=== PATIENT | female | born 1985 | race American Indian/Alaskan Native ===

== ENCOUNTER 2019-07-03 16:52 | Emergency (ER) | payer SELFPAY ==
--- NOTE | 2019-07-03 17:52 | Emergency Department Report ---
Blank Doc - Documentation Documentation: 34-year-old female that presents with body aches, cough, and tachycardia. This initial assessment/diagnostic orders/clinical plan/treatment(s) is/are subject to change based on patient's health status, clinical progression and re- assessment by fellow clinical providers in the ED. Further treatment and workup at subsequent clinical providers discretion. Patient/guardians urged not to elope from the ED as their condition may be serious if not clinically assessed and managed. Initial orders include: 1- Patient sent to [facility] for further evaluation and treatment 2- xrays
[2019-07-03 17:57] VITALS: BP 127/93
--- NOTE | 2019-07-03 18:24 | XRay Report ---
CHEST 2 VIEWS INDICATION / CLINICAL INFORMATION: cough. COMPARISON: None available. FINDINGS: SUPPORT DEVICES: None. HEART / MEDIASTINUM: No significant abnormality. LUNGS / PLEURA: No significant pulmonary or pleural abnormality. No pneumothorax. ADDITIONAL FINDINGS: No significant additional findings. IMPRESSION: No acute finding. Signer Name: Jean Steiner MD Signed: 07/03/2019 6:19 PM Workstation Name: [id number]
--- NOTE | 2019-07-03 21:47 | Emergency Department Report ---
Chief Complaint: Upper Respiratory Infection Stated Complaint: SICK Time Seen by Provider: 07/03/19 17:50 - Exam Vital Signs: Vital Signs 07/03/19 17:55 Temperature 98 F Pulse Rate 122 H Respiratory 18 Rate Blood Pressure 127/93 O2 Sat by Pulse 98 Oximetry MSE screening note: Focused history and physical exam performed. Due to findings the following was ordered: ED Disposition for MSE Condition: Stable
[2019-07-03] MEDS ORDERED: SODIUM CHLORIDE 0.9% 1000 ML 1,000 ML ONE (21:52)
--- NOTE | 2019-07-03 21:52 | Emergency Department Report ---
ED General Adult HPI - General Chief complaint: Upper Respiratory Infection Stated complaint: SICK Time Seen by Provider: 07/03/19 17:50 Source: patient Mode of arrival: Ambulatory Limitations: No Limitations - History of Present Illness Initial comments: 34-year-old -Italian female presents to the emergency room complaining of body aches stomachache and fever. Patient states that she has been taking [id number] TheraFlu. Patient reports mild headache and left lower quadrant abdominal pain. Patient reports her last menstrual period was 06/21/2019. Patient reports that both of her tubes are removed secondary to ectopic pregnancies. Patient reports 2 days ago she had diarrhea but today it was a little more formed. Patient denies being on control no cancers and no recent travels. It was noted patient's vital signs in triage that she was tachycardic at 122. Patient reports that she has had palpitations for about a week and a half. Patient states she was tired to take deep breaths and calm down. Patient denies any past medical history. Location: abdomen Severity scale (0 -10): 9 Quality: aching Consistency: intermittent Improves with: none Worsens with: none Associated Symptoms: other (Palpitations) - Related Data Previous Rx's Medication Instructions Recorded Last Taken Type Amoxicillin [Amoxicillin TAB] 875 mg PO BID 10 Days #20 tablet 07/04/19 Unknown Rx metroNIDAZOLE [Flagyl] 500 mg PO Q8HR #21 tab 07/04/19 Unknown Rx propranoloL [Inderal] 10 mg PO BID #60 tablet 07/04/19 Unknown Rx propylthiouraciL [Propylthiouracil] 100 mg PO TID #180 tab 07/04/19 Unknown Rx Allergies Allergy/AdvReac Type Severity Reaction Status Date / Time No Known Allergies Allergy Verified 07/03/19 21:53 ED Review of Systems ROS: Stated complaint: SICK Other details as noted in HPI ED Past Medical Hx - Past Medical History Previous Medical History?: No - Surgical History Past Surgical History?: Yes - Social History Smoking Status: Never Smoker Substance Use Type: None - Medications Home Medications: Home Medications Medication Instructions Recorded Confirmed Last Taken Type Amoxicillin [Amoxicillin TAB] 875 mg PO BID 10 Days #20 tablet 07/04/19 Unknown Rx metroNIDAZOLE [Flagyl] 500 mg PO Q8HR #21 tab 07/04/19 Unknown Rx propranoloL [Inderal] 10 mg PO BID #60 tablet 07/04/19 Unknown Rx propylthiouraciL [Propylthiouracil] 100 mg PO TID #180 tab 07/04/19 Unknown Rx ED Physical Exam - General Limitations: No Limitations General appearance: alert, in no apparent distress, anxious (Internal anxiousness) - Head Head exam: Present: atraumatic, normocephalic - Eye Eye exam: Present: normal appearance - ENT ENT exam: Present: mucous membranes moist - Neck Neck exam: Present: normal inspection, full ROM - Respiratory Respiratory exam: Present: normal lung sounds bilaterally. Absent: respiratory distress - Cardiovascular Cardiovascular Exam: Present: tachycardia - GI/Abdominal GI/Abdominal exam: Present: soft, tenderness (Left lower quadrant), normal bowel sounds. Absent: distended, guarding, rebound, rigid - Neurological Exam Neurological exam: Present: alert, oriented X3, normal gait - Psychiatric Psychiatric exam: Present: normal affect, normal mood - Skin Skin exam: Present: warm, dry, intact, normal color. Absent: rash ED Course Vital Signs 07/03/19 17:55 Temperature 98 F Pulse Rate 122 H Respiratory 18 Rate Blood Pressure 127/93 O2 Sat by Pulse 98 Oximetry ED Medical Decision Making - Lab Data Result diagrams: 07/03/19 22:43 07/03/19 22:43 - Radiology Data Radiology results: report reviewed Patient: DAVID KAT MR#: [id number] : 1985 Acct:[id number] Age/Sex: 34 / F ADM Date: 07/03/19 Loc: ED Attending Dr: Ordering Physician: RENE STRICKLAND Date of Service: 07/03/19 Procedure(s): CT abdomen pelvis wo con Accession Number(s): [id number] cc: RENE STRICKLAND CT abdomen pelvis wo con INDICATION: abd pain. TECHNIQUE: All CT scans at this location are performed using the following dose modulation technique: Automated exposure control. Helical slices were obtained through the abdomen and pelvis. No contrast is administered. COMPARISON: None available. FINDINGS: No acute abnormality is seen in the lower chest. The liver, spleen, pancreas, adrenal glands, and kidneys show no acute abnormality. The aorta is normal in diameter. There is no adenopathy. The gallbladder is grossly unremarkable. There is no obstruction or free air. Pelvis: There is sigmoid diverticulitis. There is an inflamed diverticulum in the proximal sigmoid colon. There is no abscess or free air. There are no abnormal fluid collections in the abdomen or pelvis. The appendix is normal in appearance. On review of bone windows, no acute osseous abnormalities are seen. IMPRESSION: 1. There is acute sigmoid diverticulitis. There is no abscess or free air. Signer Name: Doug Bone MD Signed: 07/04/2019 12:45 AM Workstation Name: [id number] Transcribed By: SS Dictated By: Doug Bone MD Electronically Authenticated By: Doug Bone MD Signed Date/Time: 07/04/1944 DD/ TD/TT: Patient: DAVID KAT MR#: [id number] : 1985 Acct:[id number] Age/Sex: 34 / F ADM Date: 07/03/19 Loc: ED Attending Dr: Ordering Physician: FANNY BAUTISTA NP Date of Service: 07/03/19 Procedure(s): XR chest routine 2V Accession Number(s): [id number] cc: FANNY BAUTISTA NP Fluoro Time In Minutes: CHEST 2 VIEWS INDICATION / CLINICAL INFORMATION: cough. COMPARISON: None available. FINDINGS: SUPPORT DEVICES: None. HEART / MEDIASTINUM: No significant abnormality. LUNGS / PLEURA: No significant pulmonary or pleural abnormality. No pneumothorax. ADDITIONAL FINDINGS: No significant additional findings. IMPRESSION: No acute finding. Signer Name: Jean Steiner MD Signed: 07/03/2019 6:19 PM Workstation Name: [id number] Transcribed By: SHELLI Dictated By: Jean Steiner MD Electronically Authenticated By: Jean Steiner MD Signed Date/Time: 07/03/191818 DD/ 17 TD/TT: - Medical Decision Making 34-year-old -Italian female presents to the emergency room complaining of body aches stomachache and fever. Patient states that she has been taking [id number] TheraFlu. Patient reports mild headache and left lower quadrant abdominal pain. Patient reports her last menstrual period was 06/21/2019. Patient reports that both of her tubes are removed secondary to ectopic pregnancies. Patient reports 2 days ago she had diarrhea but today it was a little more formed. Patient denies being on control no cancers and no recent travels. It was noted patient's vital signs in triage that she was tachycardic at 122. Patient reports that she has had palpitations for about a week and a half. Patient states she was tired to take deep breaths and calm down. Patient denies any past medical history. Chest x-ray is negative for any acute findings CT of abdomen shows diverticulitis without abscess patient will be treated with amoxicillin 875 mg twice daily and Flagyl 500 mg twice daily x7 days. Lab work shows a TSH of 0.0008 which is diagnostic for hyper thyroidism. Will place patient on propanolol 10 mg daily and PTU 100 mg p.o. 3 times daily. 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 Critical care attestation.: If time is entered above; I have spent that time in minutes in the direct care of this critically ill patient, excluding procedure time. ED Disposition Clinical Impression: Diverticulitis, Atrial tachycardia, Hyperthyroidism, Abdominal pain, UTI (urinary tract infection) Is pt being admited?: No Condition: Stable Instructions: Palpitations (ED), Urinary Tract Infection in Women (ED), Hypothyroidism (ED), Diverticulitis (ED) Additional Instructions: Please take medication as prescribed. It is very important for you to follow-up with the providers I have listed down below. Prescriptions: Amoxicillin [Amoxicillin TAB] 875 mg PO BID 10 Days #20 tablet metroNIDAZOLE [Flagyl] 500 mg PO Q8HR #21 tab propranoloL [Inderal] 10 mg PO BID #60 tablet propylthiouraciL [Propylthiouracil] 100 mg PO TID #180 tab Referrals: [facility] MD SAMIA [Primary Care Provider] - 3-5 Days JIAN CHATTERJEE MD [Staff Physician] - 3-5 Days [facility] [Provider Group] - 3-5 Days EMILIANA CHRISTOPHER MD [Staff Physician] - 3-5 Days ADITHYA HER MD [Referring] - 3-5 Days Forms: Work/School Release Form(ED), Accompanied Note
[2019-07-03 22:31] LABS: Bacteria,Urine 1+ /HPF (Negative); Bilirubin,Urine NEG (Negative); Blood,Urine MOD (Negative); Color,Urine Yellow (Yellow); Mucus,Urine 1+ /HPF; Protein,Urine <15 mg/dL mg/dL (Negative); Urobilinogen,Urine < 2.0 mg/dL (<2.0)
[2019-07-03 22:32] LABS: HCG Qualitative,Urine Negative (Negative)
[2019-07-03 23:09] LABS: Basophils # (Auto) 0.1 K/mm3 (0.0-0.1); Basophils % (Auto) 0.5 % (0.0-1.8); Eosinophils # (Auto) 0.2 K/mm3 (0.0-0.4); Eosinophils % (Auto) 2.5 % (0.0-4.3); Hematocrit 34.5 % (30.3-42.9); Hemoglobin 12.1 gm/dl (10.1-14.3); Lymphocytes # (Auto) 2.7 K/mm3 (1.2-5.4); Lymphocytes % (Auto) 29.6 % (13.4-35.0); Mean Corpuscular HGB Conc 35 % (30-34); Mean Corpuscular Volume 93 fl (79-97); Monocytes # (Auto) 1.2 K/mm3 (0.0-0.8); Platelet Count 349 K/mm3 (140-440); Red Blood Count 3.71 M/mm3 (3.65-5.03); Red Cell Distribution Width 12.4 % (13.2-15.2)
[2019-07-03] MEDS ORDERED: SODIUM CHLORIDE 0.9% 1000 ML 1,000 ML IV ONE (23:19)
[2019-07-03] MEDS ORDERED: ONDANSETRON 4 MG/2 ML INJ IV ONE (23:19)
[2019-07-03 23:33] LABS: Alanine Aminotransferase 45 units/L (7-56); Albumin 3.4 g/dL (3.9-5); BUN/Creatinine Ratio 27; Blood Urea Nitrogen 16 mg/dL (7-17); Calcium 9.4 mg/dL (8.4-10.2); Hemolysis Index 2
--- NOTE | 2019-07-04 00:49 | Cat Scan Report ---
CT abdomen pelvis wo con INDICATION: abd pain. TECHNIQUE: All CT scans at this location are performed using the following dose modulation technique: Automated exposure control. Helical slices were obtained through the abdomen and pelvis. No contrast is adminis tered. COMPARISON: None available. FINDINGS: No acute abnormality is seen in the lower chest. The liver, spleen, pancreas, adrenal glands, and kid neys show no acute abnormality. The aorta is normal in diameter. There is no adenopathy. The gallblad omkar is grossly unremarkable. There is no obstruction or free air. Pelvis: There is sigmoid diverticulitis. There is an inflamed diverticulum in the proximal sigmoid co hannah. There is no abscess or free air. There are no abnormal fluid collections in the abdomen or pelvi s. The appendix is normal in appearance. On review of bone windows, no acute osseous abnormalities are seen. IMPRESSION: 1. There is acute sigmoid diverticulitis. There is no abscess or free air. Signer Name: Doug Bone MD Signed: 07/04/2019 12:45 AM Workstation Name: [id number]
== END 2019-07-04 01:41 | disposition home or self-care (01) ==
LOC: ED 16:52
DX: K57.92 Diverticulitis of intestine, part unspecified, without perforation or abscess without bleeding (principal); N39.0 Urinary tract infection, site not specified; R00.0 Tachycardia, unspecified; E05.00 Thyrotoxicosis with diffuse goiter without thyrotoxic crisis or storm
CPT/HCPCS: 36415; 71046; 74176; 80053; 81001; 81025; 84439; 84443; 85025; 87086; 93005; 93010; 96374; 99284; J2405; J7030